=== PATIENT | female | born 1955 | race Caucasian/White ===

== ENCOUNTER 2017-02-24 09:47 | Observation (INO) | payer MEDICAID ==
[~2017-02-24] VITALS: Ht 170.2 cm; Wt 68.0 kg
[2017-02-24 10:59] LABS: Basophils # (auto) 0.1 uL; Eosinophils # (auto) 0.2 uL; Hematocrit 48.5 % (36.0-46.0); Lymphocytes # (auto) 1.9 uL; Neutrophils % (auto) 62.6 % (37.0-80.0); White Blood Cell 7.3 10^3/uL (4.4-10.8)
[2017-02-24 11:01] LABS: Basophils % (auto) 1.4 % (0.0-2.0); Eosinophils % (auto) 2.8 % (0.0-7.0); Lymphocytes % (auto) 25.6 % (10.0-50.0); Mean Corpuscular Hemoglobin 37.1 pg (28.0-32.0); Mean Corpuscular Hgb Conc. 35.1 g/dL (32.0-36.0); Mean Corpuscular Volume 105.9 fL (80.0-100.0); Mean Platelet Volume 6.9 fL (6.9-10.8); Monocytes # (auto) 0.6 uL; Monocytes % (auto) 7.6 % (0.0-12.0); Neutrophils # (auto) 4.5 uL; Nucleated Red Blood Cells % 0.2 %; Platelet Count (auto) 280 10^3/uL (140-450); Red Cell Distribution Width 14.4 % (11.8-14.3)
[2017-02-24 11:14] LABS: Anion Gap 8 (5-15); Blood Urea Nitrogen 9 mg/dL (7-18); Calcium 9.2 mg/dL (8.5-10.1); Carbon Dioxide 24 mmol/L (21-32); Chloride 101 mmol/L (98-107); Glucose 93 mg/dL (74-106); Magnesium 2.4 mg/dL (1.6-2.6); Potassium 4.4 mmol/L (3.5-5.1); Sodium 133 mmol/L (136-145)
[2017-02-24] MEDS ORDERED: SODIUM CHLORIDE 0.9% 1,000 ML IVB ONE (11:15)
[2017-02-24 11:16] LABS: Aspartate Aminotransferase 97 U/L (15-37); BUN/Creatinine Ratio 10.8; GFR African American 90 mL/min; GFR Non-African American 74 mL/min
[2017-02-24 11:21] LABS: Alkaline Phosphatase 147 U/L (45-117); Bilirubin, Total 0.9 mg/dL (0.2-1.0); Total Protein 8.3 g/dL (6.4-8.2)
[2017-02-24 11:38] LABS: Amylase 42 U/L (25-115)
[2017-02-24 11:48] LABS: Urine Bilirubin Negative (Negative); Urine Blood Negative /uL (Negative); Urine Color Yellow (Yellow); Urine Glucose Normal (Normal); Urine Ketone Negative (Negative); Urine Mucus FEW (None Seen); Urine Nitrite Negative (Negative); Urine RBC 1 /hpf (0 - 4); Urine Squamous Epithelial Cell FEW /hpf (<5); Urine Urobilinogen Normal (Negative)
[2017-02-24] MEDS ORDERED: KETOROLAC TROMETH 30 MG/ML 1ML VIAL IV ONE (12:15)
[2017-02-24 12:24] VITALS: BP 125/91
== END 2017-02-24 17:34 | disposition home or self-care (01) | DRG 251 ==
LOC: ER 09:47 → OVERFLOW 11:16 → ER 17:34
PROVIDERS: ADMIT Family Medicine; ATTEND Family Medicine
DX: R10.31 Right lower quadrant pain (principal); F17.210 Nicotine dependence, cigarettes, uncomplicated; M54.41 Lumbago with sciatica, right side
CPT/HCPCS: 36415; 71010; 71250; 72100; 74176; 80053; 81001; 82150; 83690; 83735; 84484; 85025; 93005; 96361; 96374; 99285; G0378; J1885

== ENCOUNTER 2017-08-24 09:46 | Day surgery (SDC) | payer MEDICAID ==
[2017-08-21 13:21] LABS: Basophils % (auto) 0.8 % (0.0-2.0); Eosinophils # (auto) 0.2 uL; Lymphocytes # (auto) 1.4 uL; Monocytes # (auto) 0.6 uL; Nucleated Red Blood Cells % 0.2 %; Red Cell Distribution Width 13.1 % (11.8-14.3); White Blood Cell 6.2 10^3/uL (4.4-10.8)
[2017-08-21 13:22] LABS: INR 0.93 (0.9-1.15); Partial Thromboplastin Time 27.9 sec (23.78-33.04)
[2017-08-21 13:26] LABS: Basophils # (auto) 0 uL; Eosinophils % (auto) 2.6 % (0.0-7.0); Hematocrit 43.8 % (36.0-46.0); Hemoglobin 15.2 g/dL (12.2-16.2); Lymphocytes % (auto) 22.3 % (10.0-50.0); Mean Corpuscular Hemoglobin 36.7 pg (28.0-32.0); Mean Corpuscular Hgb Conc. 34.7 g/dL (32.0-36.0); Mean Corpuscular Volume 105.6 fL (80.0-100.0); Neutrophils % (auto) 65.3 % (37.0-80.0); Platelet Count (auto) 258 10^3/uL (140-450); Red Blood Cells 4.14 10^6/uL (4.0-5.20)
[~2017-08-24] VITALS: Ht 167.6 cm; Wt 63.5 kg
[~2017-08-24 09:46] MED LIST: PANT40TA2 PO; SODIUM CHLORIDE LOCK 10 ML ONE; diphenhdrAMINE HCL 50 MG/1 ML VL ONE
[2017-08-24] MEDS ORDERED: LIDOCAINE VISCOUS 2% 15ML UD ONE (11:55)
[2017-08-24] MEDS: MIDAZOLAM HCL 5 MG/ML-1ML VIAL ONE ×3 (12:12→12:22)
[2017-08-24] MEDS: fentaNYL CITRATE 100 MCG/2 ML VL ONE ×3 (12:12→12:22)
[2017-08-24 13:10] VITALS: BP 140/92
== END 2017-08-24 13:12 | disposition home or self-care (01) ==
LOC: SUR 09:46
PROVIDERS: ATTEND Internal Medicine Gastroenterology
DX: D12.3 Benign neoplasm of transverse colon (principal); K63.5 Polyp of colon; K57.30 Diverticulosis of large intestine without perforation or abscess without bleeding; K64.8 Other hemorrhoids; K29.50 Unspecified chronic gastritis without bleeding; K29.80 Duodenitis without bleeding; K21.9 Gastro-esophageal reflux disease without esophagitis; E78.5 Hyperlipidemia, unspecified; B19.20 Unspecified viral hepatitis C without hepatic coma; F41.9 Anxiety disorder, unspecified; F17.210 Nicotine dependence, cigarettes, uncomplicated; Z79.899 Other long term (current) drug therapy; Z88.6 Allergy status to analgesic agent
CPT/HCPCS: J1200; J3010; J7030; 36415; 43239; 45380; 85025; 85610; 85730; 99152; 99153; J2250

== ENCOUNTER 2018-08-22 04:04 | Emergency (ER) | payer MEDICAID ==
[~2018-08-22] VITALS: Ht 160 cm; Wt 63.5 kg
[~2018-08-22 04:04] MED LIST changes: -SODIUM CHLORIDE LOCK 10 ML ONE; -diphenhdrAMINE HCL 50 MG/1 ML VL ONE
[2018-08-22] MEDS ORDERED: HYDROmorphone HCL 2 MG/ML VL IM ONE (04:30)
[2018-08-22 06:03] LABS: Basophils # (auto) 0.1 uL; Basophils % (auto) 0.5 % (0.0-2.0); Eosinophils # (auto) 0.1 uL; Eosinophils % (auto) 0.7 % (0.0-7.0); Hematocrit 42.8 % (36.0-46.0); Hemoglobin 14.4 g/dL (12.2-16.2); Lymphocytes % (auto) 12.4 % (10.0-50.0); Mean Corpuscular Hemoglobin 35.4 pg (28.0-32.0); Mean Corpuscular Hgb Conc. 33.6 g/dL (32.0-36.0); Mean Corpuscular Volume 105.3 fL (80.0-100.0); Monocytes # (auto) 0.8 uL; Monocytes % (auto) 5.1 % (0.0-12.0); Neutrophils # (auto) 13.2 uL; Neutrophils % (auto) 81.3 % (37.0-80.0); Platelet Count (auto) 280 10^3/uL (140-450); Red Blood Cells 4.06 10^6/uL (4.0-5.20); Red Cell Distribution Width 13.3 % (11.8-14.3); White Blood Cell 16.2 10^3/uL (4.4-10.8)
[2018-08-22 06:29] LABS: Albumin 3.5 g/dL (3.4-5.0); BUN/Creatinine Ratio 14.1; Calcium 8.5 mg/dL (8.5-10.1); Potassium 3.5 mmol/L (3.5-5.1)
[2018-08-22 06:32] LABS: Bilirubin, Total 0.4 mg/dL (0.2-1.0); INR 0.92 (0.9-1.15); Partial Thromboplastin Time 24.7 sec (23.64-32.05); Total Protein 7.4 g/dL (6.4-8.2)
[2018-08-22] MEDS ORDERED: LIDOCAINE 1% HCL (LOCAL ANESTH.) INJ 20ML MDV ONE (06:38)
[2018-08-22] MEDS ORDERED: TETANUS-DIPTH-ACEL PERTUSSIS 0.5ML SYRG IM ONE (06:45)
[2018-08-22 07:19] VITALS: BP 128/84
[2018-08-22 09:00] LABS: Urine Bacteria FEW /hpf (None Seen); Urine Blood Negative /uL (Negative); Urine Mucus FEW (None Seen); Urine Specific Gravity 1.018 (1.001-1.035); Urine WBC 2 /hpf (0 - 5)
[2018-08-22 09:14] LABS: Amphetamine Screen, Urine POSITIVE (NEGATIVE); Barbiturate Scree,Urine NEGATIVE (NEGATIVE); Benzodiazephine Screen, Urine NEGATIVE (NEGATIVE); Cocaine Screen, Urine NEGATIVE (NEGATIVE); Opiate Scree,Urine POSITIVE (NEGATIVE)
[2018-08-22 09:22] LABS: Cannabinoid Screen, Urine POSITIVE (NEGATIVE); Phencyclidine Screen, Urine NEGATIVE (NEGATIVE)
== END 2018-08-22 09:27 | disposition home or self-care (01) ==
LOC: EDBD 04:04 → ER 04:04
DX: S31.119A Laceration without foreign body of abdominal wall, unspecified quadrant without penetration into peritoneal cavity, initial encounter (principal); S90.811A Abrasion, right foot, initial encounter; F17.210 Nicotine dependence, cigarettes, uncomplicated; F12.10 Cannabis abuse, uncomplicated; R51 Headache; Z98.51 Tubal ligation status; Z88.6 Allergy status to analgesic agent; X58.XXXA Exposure to other specified factors, initial encounter; Y93.02 Activity, running; Y92.89 Other specified places as the place of occurrence of the external cause; Y99.8 Other external cause status
CPT/HCPCS: 12002; 36415; 70450; 71250; 72125; 73060; 73560; 73630; 74176; 80053; 80307; 80320; 81001; 81025; 84439; 84443; 85025; 85610; 85730; 86850; 86900; 86901; 90471; 90715; 93005; 96372; 99284; J1170; J2001